=== PATIENT | female | born 1970 | race Caucasian/White ===

== ENCOUNTER 2018-09-01 21:43 | Emergency (ER) | payer OTHER, SELFPAY ==
[2018-09-01 21:44] VITALS: BP 125/80; PULSE 122; RESP 22; TEMP 38.3; O2SAT 96; BMI 31.4
[2018-09-01 21:54] VITALS: BP 123/80; PULSE 117; RESP 16; TEMP 37.5; O2SAT 94
--- NOTE | 2018-09-01 22:17 | ED.DCSUM_ITS ---
- ER Visit Summary Date of Service: 09/01/18 Chief Complaint: Fever History of Present Illness: The patient is a 48 F past Britney history of anxiety, kidney stones and hypothyroidism. Patient states since Wednesday evening started having intermittent fever, chills and sweats. Said tonight her fever was high as 103.4 and decided come in to be evaluated. She denies any significant cough or shortness of breath. No chest pain. No abdominal pain. She denies any nausea, vomiting or diarrhea. No dysuria. No back pain. No rashes. No one else at home has been ill. Physical Examination: Well-appearing middle-age female. Vital signs stable she is febrile at 101. H EENT exam unremarkable. Moist weeks membranes. Posterior pharynx without erythema or exudate. TMs normal. Neck nontender. No lymphadenopathy. No meningismus. Lungs clear to auscultation bilaterally. Heart tachycardic rate about 120 no murmur. Chest wall nontender. Abdomen soft and nontender normal bowel sounds no peritoneal signs. Patient moving all 4 extremities. They are neurovascularly intact. Calves are nontender. Skin there is no rashes. Back is nontender. Neurologically she is awake and alert with no focal motor deficits. Acting normally. Test Results: Chest x-ray 2 views AP and lateral shows no acute abnormality. Normal cardiac silhouette. CBC shows a normal white count of 9. Hemoglobin of 12. No bands. Electrolytes unremarkable. Normal creatinine and gap. Blood cultures x2 have been sent. Urinalysis is unremarkable with no nitrates and no bacteria. There are 5-10 white cells. I did send a culture. But at this time with no urinary symptoms I will hold off on any antibiotic treatment until the culture returns. Emergency Department Course and Treatment: Patient treated with p.o. Tylenol. She had Motrin about 2 hours prior to arrival. 1 L normal saline. Repeat exam at 2313 patient looks and feels better. Her current oral temperature is 98.3 after Tylenol. States she does feel better. Treatment Plan: Fluids and rest. Alternate Tylenol and Motrin for fever. Follow-up with your doctor if not improving or return if worse. Disposition: Discharge Impression: Acute fever of uncertain etiology This note was generated with [employer] dictation software. It may contain incorrect words, spelling, and punctuation that were not noted in review of the chart prior to signing ED Disposition - Plan for ED Patient: Disposition: Home or Assisted Living Instructions: ED Fever Unconf Cause Referrals: Town Doctor,Out of [Primary Care Provider] - 3-5 Days if not improving Additional Instructions: Plenty of fluids and rest. Alternate Tylenol and Motrin for fever. Follow-up with your doctor if not improving or return to the ER if you are feeling worse.
[2018-09-01] MEDS: 0.9% Normal Saline 1,000 ML 1000 ML IV (22:29)
[2018-09-01 22:30] VITALS: BP 108/71; PULSE 105; RESP 20; TEMP 37.6; O2SAT 94
[2018-09-01 22:46] LABS: Bacteria 0 SEEN /hpf (None Seen); Mucous, Urine 0 SEEN /hpf (<or=2+)
[2018-09-01] MEDS: Acetaminophen 500 MG Tablet 1000 MG PO (22:48)
[2018-09-01 22:49] VITALS: BP 127/78; PULSE 94; RESP 18; TEMP 37.6; O2SAT 95
--- NOTE | 2018-09-01 22:54 | RAD_ITS ---
HISTORY: fever EXAM: XR Chest 2 Views COMPARISON: None FINDINGS: LINES/DEVICES: None. LUNGS: Radiographically clear. No consolidation, edema or effusion. No pneumothorax. MEDIASTINUM AND CARDIOVASCULAR STRUCTURES: Cardiac silhouette not enlarged. Central airways and mediastinal contour are unremarkable. BONES AND SOFT TISSUES: No acute findings. Prominent S-shaped scoliosis partially visible. RAD/Chest PA and Lateral IMPRESSION: No radiographic evidence of acute cardiopulmonary disease. at 0023 Reported and signed by: Ian Baugh MD Electronically Signed: Ian Baugh, at 0:22 EDT Tel , Service support ,
[2018-09-01 23:06] LABS: Absolute Lymphocyte Count 1.49 X10^3/ul (0.83-4.51); Absolute Neutrophil Count 6.8 X10^3/uL (2.0-7.7); Basophil# 0.03 X10^3/uL; Basophil% 0.3 % (0-1); Eosinophil# 0.04 X10^3/uL; Eosinophils% 0.4 % (0-5); Hematocrit 39.2 % (37-47); Hemoglobin 12.9 g/dl (12.0-15.0); Lymphocyte # 1.49 X10^3/ul (4.0); Mean Corp Hgb Conc 32.9 g/gl (32-36); Mean Corpuscular Hgb 29.9 pg (27.0-32.0); Mean Corpuscular Volume 90.7 fL (81-99); Mean Platelet Vol. 9.4 fl (6.2-12.0); Monocyte# 1.59 X10^3/uL; Neutrophil # 6.76 X10^3/uL (2.7-7.7); Neutrophil % 68.2 % (47-70); Platelet Count 186 K/mm3 (150-450); RBC Distribution Width CV 14.4 % (11.6-14.6); RBC Distribution Width SD 47.2 fl (35.1-43.9); Red Blood Count 4.32 M/mm3 (4.2-5.4); White Blood Count 9.9 K/mm3 (4.4-11.0)
[2018-09-01 23:09] LABS: Differential Indicated SCAN CRITERIA MET; POSITIVE COUNT NO; POSITIVE DIFFERENTIAL YES; POSITIVE MORPHOLOGY YES
--- NOTE | 2018-09-01 23:10 | ED.DEP ---
ED Disposition - Plan for ED Patient: Disposition: Home or Assisted Living Instructions: ED Fever Unconf Cause Referrals: Town Doctor,Out of [Primary Care Provider] - 3-5 Days if not improving Additional Instructions: Plenty of fluids and rest. Alternate Tylenol and Motrin for fever. Follow-up with your doctor if not improving or return to the ER if you are feeling worse.
[2018-09-01 23:12] LABS: Anion Gap 7 (5-15); BUN 11 mg/dL (7-18); BUN/Creat Ratio 15.5 RATIO (10-20); Calcium,Total 8.5 mg/dL (8.5-10.1); Chloride 105 mmol/L (98-107); Creatinine, Serum 0.71 mg/dL (0.55-1.02); EST Glomerular Filtration Rate 94 mL/min (>60); Est Glom Filt Rate - Afr Amer 114 mL/min (>60); Estimated Creatinine Clearance 92.69 ml/min; Glucose 112 mg/dL (74-106); Potassium 3.7 mmol/L (3.5-5.1); Sodium Level 138 mmol/L (136-145)
[2018-09-01 23:23] VITALS: BP 116/69; PULSE 92; PULSE 93; RESP 18; TEMP 37.3; O2SAT 95
[2018-09-01 23:25] LABS: Color, Urine Straw (Yellow); Glucose, Dipstick Normal (Normal); Ketone-Dipstick Negative (Negative); Leukocyte Esterase-Dipstick 500 /ul (Negative); Nitrite-Dipstick Negative (Negative); Occult Blood-Urine 150 /ul (Negative); Protein-Dipstick Negative (Negative); Specific Gravity, Urine 1.005 (1.002-1.030); Urine Bilirubin Dipstick Negative (Negative); Urine Clarity Clear (Clear); Urine Urobilinogen Normal (Normal)
[2018-09-01 23:28] LABS: Lactic Acid 0.6 mmol/L (0.4-2.0)
[2018-09-01 23:31] LABS: Differential Comment SCANNED
[2018-09-01 23:54] LABS: Squamous Epithelial Cells - UA 0-5 SEEN /hpf (5-10)
[2018-09-01 23:55] LABS: Red Blood Cells-Urine 0-5 SEEN /hpf (0-5); White Blood Cells 5-10 SEEN /hpf (0-5)
[2018-09-02 00:08] VITALS: BP 110/71; PULSE 96; RESP 18; TEMP 36.8; O2SAT 95
--- NOTE | 2018-09-02 00:12 | ED.DEP ---
ED Disposition - Plan for ED Patient: Disposition: Home or Assisted Living Instructions: ED Fever Unconf Cause Referrals: Town Doctor,Out of [Primary Care Provider] - 3-5 Days if not improving Additional Instructions: Plenty of fluids and rest. Alternate Tylenol and Motrin for fever. Follow-up with your doctor if not improving or return to the ER if you are feeling worse. We set both blood cultures and urine cultures tonight looking for bacterial infections they should both return in the next 48 hours if there is any signs of infection we will follow-up with you.
== END 2018-09-02 00:16 | disposition home or self-care (01) ==
PROVIDERS: Emergency Provider Emergency Medicine
DX: R50.9 Fever, unspecified (principal); E03.9 Hypothyroidism, unspecified; F41.9 Anxiety disorder, unspecified; Z87.442 Personal history of urinary calculi; Z79.899 Other long term (current) drug therapy
CPT/HCPCS: 71046; 80048; 81001; 83605; 85025; 87040; 87077; 87086; 87088; 87186; 96360; 99284; J7030

== ENCOUNTER 2022-02-13 11:31 | Inpatient (IN) | payer BC, SELFPAY ==
[2022-02-13] VITALS (16 sets, daily range): BP systolic 108–134; BP diastolic 57–90; PULSE 95–149; RESP 16–20; TEMP 36.6–39.4; O2SAT 96–100; BMI 30.4; BMI 30.2
--- NOTE | 2022-02-13 12:07 | CT_ITS ---
STUDY: CT ABDOMEN AND PELVIS WITH CONTRAST REASON FOR EXAM: Female, 51 years old. Left flank pain. Currently being treated for kidney infection. ? Renal abscess RADIATION DOSAGE (If Supplied By Facility): CTDIvol = ( 17.77 ) mGy, DLP = ( 1831.23 ) mGycm TECHNIQUE: Transaxial images were obtained from the dome of the diaphragm to the symphysis pubis without oral contrast. IV 100mL Isovue-300 was administered. Sagittal and coronal images were reconstructed. Individualized dose optimization techniques were used for this CT. COMPARISON: Comparison is made with prior study dated 07/04/2016. FINDINGS: Stable mild increased markings at the left lung base suggestive of but atelectasis superimposed on scarring. The visualized portions of the heart are within normal limits. Normal liver. Normal gallbladder and extrahepatic biliary system. Normal spleen. Normal pancreas. Normal bilateral adrenal glands. There is evidence of dense calcifications of the renal papilla bilaterally suggestive of nephrocalcinosis. There is a 1.5 cm x 1.2 cm area of decreased attenuation in the posterior aspect of the left kidney abutting the cortical surface along its lower pole. A similar appearing heterogeneous hypodensities seen along the posterior medial aspect of the midportion of the left kidney. This may represent areas of pyelonephritis. No mary jane abscess is seen. There is evidence of a moderate-sized right hydronephrosis. No calculus is seen. Normal visualized stomach. Normal small intestine. There are scattered colonic diverticula consistent with diverticulosis. The appendix is visualized and appears normal. Normal abdominal aorta. Normal inferior vena cava. Normal retroperitoneum. Normal urinary bladder. Enlarged heterogeneous uterus suggestive of a fibroid uterus. Normal abdominal wall. Grade 1 anterolisthesis of L5 on S1 due to spondylolysis. Disc space narrowing and subchondral sclerosis at the L5-S1 level. Levoscoliosis. CT/Abdomen/Pelvis W IV Cont ONLY IMPRESSION: Dense bilateral nephrocalcinosis with 2 areas of decreased attenuation in the left kidney as described suggestive of possible pyelonephritis and lobar nephronia. Mildly dilated right renal pelvis and calyceal system. Electronically Signed: Kenny Chen MD at 14:01 EDT ,
--- NOTE | 2022-02-13 12:16 | EDS_ITS ---
HPI History of Present Illness Chief Complaint: Flank Pain Informant: patient and spouse/S.O. Narrative Narrative: 51-year-old female presenting to the emergency room with a chief complaint of kidney infection. Patient states she began to have fever and chills on Wednesday. She notes associated dysuria and urinary frequency. Yesterday she went to urgent care was given a prescription for Bactrim. She notes nausea and difficulty drinking and eating. She notes worsening pain in the left flank. She states she took some Motrin prior to arrival and is feeling less febrile and less painful. [facility] Medical History Depression with anxiety Hypothyroidism Home Medications alprazolam 0.5 mg tablet 0.5 mg PO DAILY PRN Insomnia 03/15/16 [History Last Taken 03/15/16] sertraline 25 mg tablet (Zoloft) 12.5 mg PO DAILY 09/01/18 [History Last Taken 02/12/22] thyroid (pork) 30 mg tablet ([place] Thyroid) 30 mg PO DAILY 09/01/18 [History Last Taken 02/13/22] melatonin 1.5 mg tablet 2 mg PO QHS 02/13/22 [History Last Taken 02/12/22] Allergy/AdvReac Type Severity Reaction Status Date / Time cephalexin AdvReac Other Verified 02/13/22 11:33 ciprofloxacin [From Cipro] AdvReac Nausea Verified 02/13/22 11:32 Social History Smoking Status: Never smoker substance use type: does not use ROS ROS ED Constitutional Constitutional ED: Reports chills, fever(s) and sweats; Denies weight loss Eyes Eyes: Denies change in vision or diplopia ENT ENT ED: Denies ear pain, rhinorrhea or sore throat Cardiovascular Cardiovascular: Denies chest pain, orthopnea, palpitations or racing heartbeat Respiratory/Chest Respiratory/Chest: Denies cough, dyspnea or orthopnea Gastrointestinal Gastrointestinal: Reports nausea; Denies abdominal pain, diarrhea or vomiting Genitourinary Genitourinary ED: Reports dysuria and urinary frequency; Denies hematuria Musculoskeletal Musculoskeletal: Reports back pain; Denies arthralgias or myalgias Integumentary Denies abscess or rash Neurologic Neurologic: Denies headache(s) or weakness Psychiatric Psychiatric: Denies anxiety, depression, suicidal ideation or suicidal thoughts Endocrine Endocrinology: Denies polydipsia, polyphagia or polyuria Allergic/Immunologic Allergic/Immunologic ED: Denies mouth swelling, tongue swelling or urticaria EXAM Physical Exam Const Vital Signs: 02/13/22 11:33 02/13/22 11:35 02/13/22 12:35 Temperature 99.1 F 99.1 F 99.1 F Temperature Source Oral Oral Oral Pulse Rate 126 H 126 H 126 H Respiratory Rate 18 18 18 Blood Pressure 126/90 H 126/90 H 126/90 H Blood Pressure Mean 102 102 102 Pulse Ox 97 97 97 Oxygen Delivery Method Room Air Room Air Room Air 02/13/22 13:00 02/13/22 14:07 02/13/22 14:09 Temperature 99.1 F 98.2 F Temperature Source Oral Oral Pulse Rate 122 H 98 100 Respiratory Rate 18 18 18 Blood Pressure 128/88 H 108/57 L Blood Pressure Mean 101 74 Pulse Ox 97 Oxygen Delivery Method Room Air Room Air Room Air Positive well nourished and well developed General Appearance ED: well developed HEENT Reports normocephalic, head/scalp atraumatic and moist mucous membranes Eyes PERRL and EOMs intact bilaterally Neck no lymphadenopathy, supple and no JVD Resp normal respiratory effort and clear to auscultation bilaterally Cardio regular rate, regular rhythm and no murmurs Rate: tachycardic GI normal to inspection, nondistended, normoactive bowel sounds and non-tender Palpation: soft Back/Spine normal ROM General Back: CVA tenderness left Extremity normal to inspection General Extremety ED: Negative for edema General Extremity: Negative for edema Neuro oriented x3 and CN's II-XII intact bilaterally Sensorium / Orientation: alert Motor Exam: strength 5/5 throughout Psych mental status grossly normal Mood & Affect: Negative for depressed or tearful Skin no rashes or lesions noted and no wounds Skin Narrative: Patient is diaphoretic Sepsis Attestation Possible Source of Sepsis: Genitourinary MDM MDM MDM Narrative Medical decision making narrative: White count returns at 16.4. Hemoglobin 11.7. Creatinine slightly elevated off baseline at 1.11. Lactic acid is normal at 1.5. There is some elevation of the patient's transaminases. Troponin is negative. Urinalysis shows 25-50 red cells 25-50 white cells and 1+ bacteria. With 5 days of fever and continued left flank pain and a history of ureterolithiasis a CT of the abdomen pelvis was obtained to rule out infected kidney stone and renal abscess. Patient received IV fluids morphine Toradol Zofran and Zosyn after blood and urine cultures were obtained. Lab Data Attestation: I reviewed the patient's lab results. Labs: Laboratory Results - last 24 hr 02/13/22 02/13/22 02/13/22 12:05 12:20 12:20 WBC 16.4 H RBC 3.77 L Hgb 11.7 L Hct 34.8 L MCV 92.3 MCH 31.0 MCHC 33.6 RDW Std Deviation 50.4 H RDW Coeff of [place] 14.8 H Plt Count 177 MPV 9.9 Immature Gran % (Auto) 0.700 Neut % (Auto) 85.4 H Lymph % (Auto) 3.4 L [place] % (Auto) 10.1 H Eos % (Auto) 0.1 Baso % (Auto) 0.3 Absolute Neuts (auto) 14.0 H Absolute Lymphs (auto) 0.56 L Nucleated RBC % 0 Platelet Estimate ADEQUATE RBC Morphology NORM C+C PT INR APTT Sodium 136 Potassium 3.7 Chloride 106 Carbon Dioxide 21.0 Anion Gap 9 BUN 11 Creatinine 1.11 H Estim Creat Clear Calc 59.62 Est GFR (MDRD) Af Amer 67 Est GFR (MDRD) Non-Af 55 L BUN/Creatinine Ratio 9.9 L Glucose 168 H Lactic Acid Calcium 8.8 Total Bilirubin 0.70 AST 57 H ALT 160 H Alkaline Phosphatase 243 H Troponin I High Sens < 3 L Total Protein 7.1 Albumin 2.4 L Globulin 4.7 H Albumin/Globulin Ratio 0.5 L Lipase 40 L Urine Color Yellow Urine Clarity Sl. Cloudy Urine pH 6.5 Ur Specific [place] 1.005 Urine Protein 30 H Urine Glucose (UA) Normal Urine Ketones 15 H Urine Occult Blood 250 H Urine Nitrite Negative Urine Bilirubin Negative Urine Urobilinogen Normal Ur Leukocyte Esterase 500 H Urine RBC 25-50 SEEN Urine WBC 25-50 SEEN Ur Squamous Epith Cells 0-5 SEEN Urine Bacteria 1+ Urine Mucus 0 SEEN 02/13/22 02/13/22 12:20 12:56 WBC RBC Hgb Hct MCV MCH MCHC RDW Std Deviation RDW Coeff of [place] Plt Count MPV Immature Gran % (Auto) Neut % (Auto) Lymph % (Auto) [place] % (Auto) Eos % (Auto) Baso % (Auto) Absolute Neuts (auto) Absolute Lymphs (auto) Nucleated RBC % Platelet Estimate RBC Morphology PT 15.3 H INR 1.2 APTT 35.3 Sodium Potassium Chloride Carbon Dioxide Anion Gap BUN Creatinine Estim Creat Clear Calc Est GFR (MDRD) Af Amer Est GFR (MDRD) Non-Af BUN/Creatinine Ratio Glucose Lactic Acid 1.5 Calcium Total Bilirubin AST ALT Alkaline Phosphatase Troponin I High Sens Total Protein Albumin Globulin Albumin/Globulin Ratio Lipase Urine Color Urine Clarity Urine pH Ur Specific [place] Urine Protein Urine Glucose (UA) Urine Ketones Urine Occult Blood Urine Nitrite Urine Bilirubin Urine Urobilinogen Ur Leukocyte Esterase Urine RBC Urine WBC Ur Squamous Epith Cells Urine Bacteria Urine Mucus Radiography Diagnostic Testing: Clinical Impression(s) from Imaging Studies Abdomen/Pelvis CT 02/13/22 12:07 IMPRESSION: Dense bilateral nephrocalcinosis with 2 areas of decreased attenuation in the left kidney as described suggestive of possible pyelonephritis and lobar nephronia. Mildly dilated right renal pelvis and calyceal system. Electronically Signed: Kenny Chen MD at 14:01 EDT , Discharge Plan Dx/Rx/DC Orders Clinical Impression: Acute pyelonephritis, Left flank pain, Hypothyroidism, Depression with anxiety Disposition Disposition: Acute Care Hospital [facility]
[2022-02-13 12:32] LABS: Mucous, Urine 0 SEEN /hpf (<or=2+)
[2022-02-13 12:35] LABS: Absolute Lymphocyte Count 0.56 X10^3/uL (0.83-4.51); Basophil# 0.05 X10^3/uL; Basophil% 0.3 % (0-1); Eosinophil# 0.02 X10^3/uL; Eosinophils% 0.1 % (0-5); Hematocrit 34.8 % (37-47); Hemoglobin 11.7 g/dL (12.0-15.0); Lymphocyte # 0.56 X10^3/ul (0.83-4.51); Lymphocyte % 3.4 % (19-41); Mean Corp Hgb Conc 33.6 g/dL (32-36); Mean Corpuscular Volume 92.3 fL (81-99); Mean Platelet Vol. 9.9 fl (6.2-12.0); Monocyte# 1.65 X10^3/uL; Monocyte% 10.1 % (0-10); NRBC Flagged by Analyzer 0 % (0-5); Neutrophil # 13.96 X10^3/uL (2.7-7.7); Neutrophil % 85.4 % (47-70); POSITIVE DIFFERENTIAL YES; POSITIVE MORPHOLOGY YES; Platelet Count 177 K/mm3 (150-450); RBC Distribution Width CV 14.8 % (11.6-14.6); RBC Distribution Width SD 50.4 fl (35.1-43.9); Red Blood Count 3.77 M/mm3 (4.2-5.4); White Blood Count 16.4 K/mm3 (4.4-11.0)
[2022-02-13 12:36] LABS: Color, Urine Yellow (Yellow); Glucose, Dipstick Normal (Normal); Ketone-Dipstick 15 mg/dl (Negative); Leukocyte Esterase-Dipstick 500 /ul (Negative); Nitrite-Dipstick Negative (Negative); Occult Blood-Urine 250 /ul (Negative); Protein-Dipstick 30 mg/dl (Negative); Specific Gravity, Urine 1.005 (1.002-1.030); Urine Bilirubin Dipstick Negative (Negative); Urine Clarity Sl. Cloudy (Clear); Urine Urobilinogen Normal (Normal); Urine pH 6.5 (5.0 - 8.0)
[2022-02-13 12:36] LABS: Differential Indicated SCAN CRITERIA MET
[2022-02-13 12:46] LABS: Bacteria 1+ /hpf (None Seen); Red Blood Cells-Urine 25-50 SEEN /hpf (0-5); Squamous Epithelial Cells - UA 0-5 SEEN /hpf (5-10); White Blood Cells 25-50 SEEN /hpf (0-5)
[2022-02-13] MEDS: Ondansetron 4 MG/2 ML Vial IV (12:50)
[2022-02-13] MEDS: Morphine 4 MG/ML Syringe IV (12:50)
[2022-02-13] MEDS: Ketorolac 30 MG/ML Syringe IV (12:50)
[2022-02-13] MEDS: 0.9% Normal Saline 1,000 ML 1000 ML IV (12:51)
[2022-02-13 13:03] LABS: ALB/GLOB Ratio 0.5 RATIO (0.9-2.4); AST(SGOT) 57 U/L (15-37); Alanine Aminotransfer ALT/SGPT 160 U/L (13-56); Albumin, Serum 2.4 g/dL (3.2-5.0); Alkaline Phosphatase 243 U/L (45-117); Anion Gap 9 (5-15); BUN 11 mg/dL (7-18); BUN/Creat Ratio 9.9 RATIO (10-20); Calcium,Total 8.8 mg/dL (8.5-10.1); Chloride 106 mmol/L (98-107); Creatinine, Serum 1.11 mg/dL (0.55-1.02); EST Glomerular Filtration Rate 55 mL/min (>60); Est Glom Filt Rate - Afr Amer 67 mL/min (>60); Estimated Creatinine Clearance 59.62 ml/min; Globulin 4.7 g/dL (2.2-4.2); Glucose 168 mg/dL (74-106); Lipase 40 U/L (73-393); Potassium 3.7 mmol/L (3.5-5.1); Protein, Total 7.1 g/dL (6.4-8.2); Sodium Level 136 mmol/L (136-145); Troponin-I HS < 3 pg/mL (3.0-54.0)
[2022-02-13 13:08] LABS: Lactic Acid 1.5 mmol/L (0.4-1.9)
[2022-02-13 13:11] LABS: Platelet Estimate ADEQUATE (ADEQ); Red Cell Morphology NORM C+C NORMAL (NORM C&C)
[2022-02-13 13:15] LABS: International Normalized Ratio 1.2; Prothrombin Time (Protime)PT. 15.3 SECONDS (11.7-14.9)
[2022-02-13 13:16] LABS: Partial Thromboplast Time 35.3 Seconds (24.1-36.2)
--- NOTE | 2022-02-13 14:44 | NURSING ---
MED SURG TERSAUD ACUTE PYELONEPHRITIS
--- NOTE | 2022-02-13 16:40 | HP.PCM.HOS_ITS ---
HPI - General General Date of Admission: 02/13/22 Date of Service: 02/13/22 Chief Complaint: Left flank pain, urinary frequency, dysuria HPI Narrative JU PIEDRA, is a 51 F who presents to the emergency room at [facility] with complaints of dysuria, urinary frequency, and left flank pain. Patient states she had fevers and chills beginning last Wednesday, she was seen yesterday at urgent care and given a prescription for Bactrim. Patient states that she has been having some nausea and difficulty drinking fluids and e ating. Labs obtained in the emergency room showed the patient have an elevated white blood cell count at 16.4, hemoglobin was 11.7, patient's chemistry profile revealed a creatinine of 1.11 but was otherwise unremarkable. Patient's AST was elevated at 57, ALT was elevated at 160, and alkaline phosphatase was elevated at 243. Patient's urinalysis showed 25-50 RBCs, 25-50 WBCs, +1 bacteria. Azucena ent was afebrile in the emergency room. CT of the abdomen pelvis showed dense bilateral nephrocalcinosis bilaterally with 2 areas of decreased attenuation in the left kidney and possible pyelonephritis and lobar nephronia. Patient will be admitted for acute pyelonephritis, she states that when she was on Keflex before she felt strange, she has no rash or shortness of breath from Keflex, I have decided to place her on IV Rocephin for pyelonephritis. [facility] Medical History Depression with anxiety Hypothyroidism Home Medications alprazolam 0.5 mg tablet 0.5 mg PO DAILY PRN Insomnia 03/15/16 [History Last Taken 03/15/16] sertraline 25 mg tablet (Zoloft) 12.5 mg PO DAILY 09/01/18 [History Last Taken 02/12/22] thyroid (pork) 30 mg tablet ([place] Thyroid) 30 mg PO DAILY 09/01/18 [History Last Taken 02/13/22] melatonin 1.5 mg tablet 2 mg PO QHS 02/13/22 [History Last Taken 02/12/22] Allergy/AdvReac Type Severity Reaction Status Date / Time cephalexin AdvReac Other Verified 02/13/22 11:33 ciprofloxacin [From Cipro] AdvReac Nausea Verified 02/13/22 11:32 Social History Smoking Status: Never smoker substance use type: does not use ROS Constitutional Constitutional: Reports chills, fatigue and fever(s); Denies anorexia, change in weight, night sweats or weakness Eyes Eyes: Denies blurry vision, change in vision, discharge from eye(s) or eye pain Cardiovascular Cardiovascular: Denies chest pain, claudication, edema or palpitations Respiratory/Chest Respiratory/Chest: Denies cough, hemoptysis, shortness of breath at rest or shortness of breath with exertion Gastrointestinal Gastrointestinal: Denies abdominal pain, constipation, diarrhea, hematemesis, hematochezia, melena, nausea or vomiting Genitourinary Genitourinary: Reports burning urination, dysuria, urinary frequency and urinary urgency; Denies hematuria, urinary hesitancy or urinary incontinence Musculoskeletal Musculoskeletal: Denies back pain, joint pain, joint stiffness, joint swelling, myalgias or neck pain Neurologic Neurologic: Denies abnormal gait, abnormal speech, dizziness, focal weakness, headache(s), loss of vision, numbness, other visual disturbances, paresthesias, syncope or tingling Psychiatric Psychiatric: Denies anxiety, cognitive impairment, depression, irritability, m ood swings or suicidal ideation Endocrine Endocrinology: Denies change in body appearance, cold intolerance, excessive sweating, heat intolerance, polydipsia or polyuria Hematologic/Lymphatic Hematologic/Lymphatic: Denies none, anemia, easy bleeding, easy bruising or lymphadenopathy Allergic/Immunologic Allergic/Immunologic: Denies rhinitis, urticaria, eczemia or asthma Vital Signs Vital Signs Vital Signs: 02/13/22 11:33 02/13/22 11:35 02/13/22 12:35 Temperature 99.1 F 99.1 F 99.1 F Temperature Source Oral Oral Oral Pulse Rate 126 H 126 H 126 H Respiratory Rate 18 18 18 Blood Pressure 126/90 H 126/90 H 126/90 H Blood Pressure Mean 102 102 102 Blood Pressure Source Blood Pressure Position Blood Pressure Location Pulse Ox 97 97 97 Oxygen Delivery Method Room Air Room Air Room Air 02/13/22 13:00 02/13/22 14:07 02/13/22 14:09 Temperature 99.1 F 98.2 F Temperature Source Oral Oral Pulse Rate 122 H 98 100 Respiratory Rate 18 18 18 Blood Pressure 128/88 H 108/57 L Blood Pressure Mean 101 74 Blood Pressure Source Blood Pressure Position Blood Pressure Location Pulse Ox 97 Oxygen Delivery Method Room Air Room Air Room Air 02/13/22 15:11 02/13/22 16:17 02/13/22 16:19 Temperature 97.8 F 98.3 F 98.3 F Temperature Source Oral Oral Oral Pulse Rate 95 101 H 101 H Respiratory Rate 18 20 H 20 H Blood Pressure 116/67 112/61 112/61 Blood Pressure Mean 83 78 78 Blood Pressure Source Monitor Blood Pressure Position Semi-Fowlers Blood Pressure Location Left Arm Pulse Ox 100 100 Oxygen Delivery Method Room Air Room Air Room Air Weight Weight: 87.543 kg Body Mass Index (BMI) 30.2 Physical Exam Const alert, oriented x3, no apparent distress and healthy appearing General Appearance: cooperative, well kempt and well developed Orientation / Consciousness: awake, oriented to person, oriented to place and oriented to time HEENT normocephalic, head/scalp atraumatic, hearing grossly normal bilaterally and moist oral mucous membranes Eyes PERRL, EOMs intact bilaterally and conjunctivae normal Neck supple, no JVD, thyroid normal and no carotid bruits General: trachea midline Resp normal respiratory effort, no retractions, no use of accessory muscles and clear to auscultation bilaterally Auscultation: Negative for rales, rhonchi or wheezes Cardio regular rate, regular rhythm, S1 normal heart sound, S2 normal heart sound, no murmurs, no rub and no gallops GI normal to inspection, nondistended, normoactive bowel sounds, soft to palpation, non-tender and non-distended Extremity no clubbing, cyanosis or edema Skin no rashes or lesions noted General Skin Exam: no breakdown Neuro oriented x3, CN's II-XII intact bilaterally, moves all extremities, no focal motor deficits and no sensory deficits noted Sensorium / Orientation: awake and alert Speech: speech normal Psych affect normal Results Lab / Micro Data Result Diagrams: 02/13/22 12:20 02/13/22 12:20 Labs: Laboratory Results - last 24 hr 02/13/22 12:05: Urine Color Yellow, Urine Clarity Sl. Cloudy, Urine pH 6.5, Ur Specific [place] 1.005, Urine Protein 30 H, Urine Glucose (UA) Normal, Urine Ketones 15 H, Urine Occult Blood 250 H, Urine Nitrite Negative, Urine Bilirubin Negative, Urine Urobilinogen Normal, Ur Leukocyte Esterase 500 H, Urine RBC 25- 50 SEEN, Urine WBC 25-50 SEEN, Ur Squamous Epith Cells 0-5 SEEN, Urine Bacteria 1+, Urine Mucus 0 SEEN 02/13/22 12:20: WBC 16.4 H, RBC 3.77 L, Hgb 11.7 L, Hct 34.8 L, MCV 92.3, MCH 31.0, MCHC 33.6, RDW Std Deviation 50.4 H, RDW Coeff of [place] 14.8 H, Plt Count 177, MPV 9.9, Immature Gran % (Auto) 0.700, Neut % (Auto) 85.4 H, Lymph % (Auto) 3.4 L, [place] % (Auto) 10.1 H, Eos % (Auto) 0.1, Baso % (Auto) 0.3, Absolute Neuts (auto) 14.0 H, Absolute Lymphs (auto) 0.56 L, Nucleated RBC % 0, Platelet Estimate ADEQUATE, RBC Morphology NORM C+C 02/13/22 12:20: Sodium 136, Potassium 3.7, Chloride 106, Carbon Dioxide 21.0, Anion Gap 9, BUN 11, Creatinine 1.11 H, Estim Creat Clear Calc 59.62, Est GFR (MDRD) Af Amer 67, Est GFR (MDRD) Non-Af 55 L, BUN/Creatinine Ratio 9.9 L, Glucose 168 H, Calcium 8.8, Total Bilirubin 0.70, AST 57 H, ALT 160 H, Alkaline Phosphatase 243 H, Troponin I High Sens < 3 L, Total Protein 7.1, Albumin 2.4 L, Globulin 4.7 H, Albumin/Globulin Ratio 0.5 L, Lipase 40 L 02/13/22 12:20: Lactic Acid 1.5 02/13/22 12:56: PT 15.3 H, INR 1.2, APTT 35.3 Radiology Impression Abdomen/Pelvis CT 02/13/22 12:07 IMPRESSION: Dense bilateral nephrocalcinosis with 2 areas of decreased attenuation in the left kidney as described suggestive of possible pyelonephritis and lobar nephronia. Mildly dilated right renal pelvis and calyceal system. Electronically Signed: Kenny Chen MD at 14:01 EDT , Assessment & Plan Assessment/Plan (1) Acute pyelonephritis: PLAN: Plan 1. Acute pyelonephritis-patient will be admitted to [facility] 3, she will be placed on IV Rocephin, IV fluids will be administered, IV pain meds will be given as needed #2 dehydration-patient will be given IV fluids, labs will be monitored #3 elevated liver enzymes-etiology unclear at this point, liver profile will be reordered tomorrow morning #4 hypothyroidism-patient will remain on her current medications #5 chronic depression-patient is on Zoloft, she will remain on this #6 chronic kidney stones-complicates care, management, recovery, and prognosis Charges/Coding Visit Charges Inpatient E&M: 74016 Init Hosp L3
[2022-02-13] MEDS: Acetaminophen 325 MG Tablet 650 MG PO ×2 (17:05→23:46)
[2022-02-13] MEDS: 0.9% Normal Saline 1,000 ML 150 ML IV (18:30)
[2022-02-13] MEDS: Phenazopyridine 95 MG Tablet PO (18:30)
[2022-02-13] MEDS: MELATONIN 3 MG TABLET PO (20:59)
[2022-02-13] MEDS: oxyCODONE 5 MG Tablet 10 MG PO (21:37)
[2022-02-14] VITALS (13 sets, daily range): BP systolic 109–140; BP diastolic 51–80; PULSE 97–126; RESP 16–18; TEMP 36.8–39.5; O2SAT 92–94
[2022-02-14] MEDS: 0.9% Normal Saline 1,000 ML 150 ML IV ×4 (00:59→21:21)
[2022-02-14] MEDS: ALPRAZolam 0.5 MG Tablet PO (03:54)
[2022-02-14] MEDS: Thyroid 15 MG Tablet 30 MG PO (05:43)
[2022-02-14] MEDS: Acetaminophen 325 MG Tablet 650 MG PO ×3 (05:44→18:56)
[2022-02-14 06:14] LABS: Absolute Lymphocyte Count 0.81 X10^3/uL (0.83-4.51); Absolute Neutrophil Count 10.1 X10^3/uL (2.0-7.7); Basophil# 0.03 X10^3/uL; Basophil% 0.2 % (0-1); Eosinophil# 0.01 X10^3/uL; Eosinophils% 0.1 % (0-5); Hematocrit 31.2 % (37-47); Hemoglobin 10.3 g/dL (12.0-15.0); Lymphocyte # 0.81 X10^3/ul (0.83-4.51); Lymphocyte % 6.2 % (19-41); Mean Corpuscular Hgb 31.7 pg (27.0-32.0); Mean Platelet Vol. 9.9 fl (6.2-12.0); Monocyte# 2.05 X10^3/uL; Monocyte% 15.6 % (0-10); NRBC Flagged by Analyzer 0 % (0-5); Neutrophil # 10.13 X10^3/uL (2.7-7.7); POSITIVE DIFFERENTIAL YES; Platelet Count 159 K/mm3 (150-450); RBC Distribution Width CV 15.5 % (11.6-14.6); RBC Distribution Width SD 55.1 fl (35.1-43.9); Red Blood Count 3.25 M/mm3 (4.2-5.4); White Blood Count 13.2 K/mm3 (4.4-11.0)
[2022-02-14 06:31] LABS: Differential Indicated SCAN CRITERIA MET
[2022-02-14 06:48] LABS: Differential Comment SCANNED
[2022-02-14 06:55] LABS: AST(SGOT) 16 U/L (15-37); Alanine Aminotransfer ALT/SGPT 87 U/L (13-56); Albumin, Serum 1.9 g/dL (3.2-5.0); Alkaline Phosphatase 183 U/L (45-117); Anion Gap 8 (5-15); BUN 11 mg/dL (7-18); BUN/Creat Ratio 12.6 RATIO (10-20); Bilirubin, Direct 0.15 mg/dL (0.00-0.30); Calcium,Total 7.9 mg/dL (8.5-10.1); Chloride 109 mmol/L (98-107); Creatinine, Serum 0.88 mg/dL (0.55-1.02); EST Glomerular Filtration Rate 73 mL/min (>60); Est Glom Filt Rate - Afr Amer 88 mL/min (>60); Globulin 3.8 g/dL (2.2-4.2); Glucose 113 mg/dL (74-106); Potassium 3.5 mmol/L (3.5-5.1); Protein, Total 5.7 g/dL (6.4-8.2); Sodium Level 139 mmol/L (136-145)
[2022-02-14] MEDS: Sertraline 50 MG Tablet 12.5 MG PO (07:50)
[2022-02-14] MEDS: Phenazopyridine 95 MG Tablet PO ×3 (07:51→17:02)
--- NOTE | 2022-02-14 08:27 | CASEMGMT ---
LORETO MUNOZ Assessment: Face to Face with pt for initial transition planning/care coordination assessment. RN ALEXANDER introduced self and role at [facility], pt voices understanding and consents to assessment. Pt is A/O x4 and answers all questions appropriately at this time. Pt sitting up in bed with at bedside. Care providers, pharmacy, and demographics verified/updated. Admitting Dx: acute pyelonephritis PCP:Funmilayo Mckenna CELL PHONE REPAIR TECHNICIAN Specialists:Pt denies. Preferred Pharmacy: [facility] Retail Insurance: Anna Prescription Benefit: yes LW/HPOA: Pt denies having a LW/DPOA and denies need for info regarding AD. LNOK: Crispin Starkey, Living Arrangements: Pt lives with and 10 children in a two story house with 3 steps to enter. Pt reports being I in ADL's and denies concerns at home. Transportation: Pt drives self and denies concerns with transportation. DME/HHC/SNF: Pt denies having any DME, previous HHC or SNF stays. Pt states no concerns with going home at time of dc. Pt states no further concerns/needs. CM to follow. Advised pt to ask CM if any further question/concerns/needs arise, voices understanding. Pt Goal: Home Plan: Home
--- NOTE | 2022-02-14 08:58 | PCM.PN.HOSP ---
Subjective Subjective Doing well, no issues overnight. Pain is improving. Objective Data Objective Data Vital Signs: Vital Signs Temp Pulse Resp BP Pulse Ox O2 Del Method 98.4 F 97 18 111/66 94 Room Air 02/14/22 07:53 02/14/22 07:53 02/14/22 07:53 02/14/22 07:53 02/14/22 07:57 02/14/22 07:57 Oxygen Delivery Method Room Air Weight: 193 lb Body Mass Index (BMI) 30.2 Intake & Output: Intake and Output for Last 24 Hours 02/13/22 02/14/22 02/15/22 03:59 03:59 03:59 Intake Total 2472.5 / 2472.5 1000 / 1000 Balance 2472.5 / 2472.5 1000 / 1000 Lab / Micro Data Result Diagrams: 02/14/22 05:40 02/14/22 05:40 Labs: Laboratory Results - last 24 hr 02/13/22 12:05: Urine Color Yellow, Urine Clarity Sl. Cloudy, Urine pH 6.5, Ur Specific [place] 1.005, Urine Protein 30 H, Urine Glucose (UA) Normal, Urine Ketones 15 H, Urine Occult Blood 250 H, Urine Nitrite Negative, Urine Bilirubin Negative, Urine Urobilinogen Normal, Ur Leukocyte Esterase 500 H, Urine RBC 25-50 SEEN, Urine WBC 25-50 SEEN, Ur Squamous Epith Cells 0-5 SEEN, Urine Bacteria 1+, Urine Mucus 0 SEEN 02/13/22 12:20: WBC 16.4 H, RBC 3.77 L, Hgb 11.7 L, Hct 34.8 L, MCV 92.3, MCH 31.0, MCHC 33.6, RDW Std Deviation 50.4 H, RDW Coeff of Rowena 14.8 H, Plt Count 177, MPV 9.9, Immature Gran % (Auto) 0.700, Neut % (Auto) 85.4 H, Lymph % (Auto) 3.4 L, [place] % (Auto) 10.1 H, Eos % (Auto) 0.1, Baso % (Auto) 0.3, Absolute Neuts (auto) 14.0 H, Absolute Lymphs (auto) 0.56 L, Nucleated RBC % 0, Diff Path Review May foll, Platelet Estimate ADEQUATE, RBC Morphology NORM C+C 02/13/22 12:20: Sodium 136, Potassium 3.7, Chloride 106, Carbon Dioxide 21.0, Anion Gap 9, BUN 11, Creatinine 1.11 H, Estim Creat Clear Calc 59.62, Est GFR (MDRD) Af Amer 67, Est GFR (MDRD) Non-Af 55 L, BUN/Creatinine Ratio 9.9 L, Glucose 168 H, Calcium 8.8, Total Bilirubin 0.70, AST 57 H, ALT 160 H, Alkaline Phosphatase 243 H, Troponin I High Sens < 3 L, Total Protein 7.1, Albumin 2.4 L, Globulin 4.7 H, Albumin/Globulin Ratio 0.5 L, Lipase 40 L 02/13/22 12:20: Lactic Acid 1.5 02/13/22 12:56: PT 15.3 H, INR 1.2, APTT 35.3 02/14/22 05:40: WBC 13.2 H, RBC 3.25 L, Hgb 10.3 L, Hct 31.2 L, MCV 96.0, MCH 31.7, MCHC 33.0, RDW Std Deviation 55.1 H, RDW Coeff of Row[place] 15.5 H, Plt Count 159, MPV 9.9, Immature Gran % (Auto) 0.900, Neut % (Auto) 77.0 H, Lymph % (Auto) 6.2 L, [place] % (Auto) 15.6 H, Eos % (Auto) 0.1, Baso % (Auto) 0.2, Absolute Neuts (auto) 10.1 H, Absolute Lymphs (auto) 0.81 L, Nucleated RBC % 0, Differential Comment SCANNED, Diff Path Review September02/14/22 05:40: Sodium 139, Potassium 3.5, Chloride 109 H, Carbon Dioxide 22.0, Anion Gap 8, BUN 11, Creatinine 0.88, Estim Creat Clear Calc 75.20, Est GFR (MDRD) Af Amer 88, Est GFR (MDRD) Non-Af 73, BUN/Creatinine Ratio 12.6, Glucose 113 H, Calcium 7.9 L, Total Bilirubin 0.50, Direct Bilirubin 0.15, AST 16, ALT 87 H, Alkaline Phosphatase 183 H, Total Protein 5.7 L, Albumin 1.9 L, Globulin 3.8 Micro: Microbiology 02/13/22 12:20 Blood Culture (Wb) - Left Hand Blood Culture - Preliminary Radiography Diagnostic Testing: Radiology Impression Abdomen/Pelvis CT 02/13/22 12:07 IMPRESSION: Dense bilateral nephrocalcinosis with 2 areas of decreased attenuation in the left kidney as described suggestive of possible pyelonephritis and lobar nephronia. Mildly dilated right renal pelvis and calyceal system. Electronically Signed: Kenny Chen MD at 14:01 EDT , Physical Exam Narrative General: Alert, Oriented x3, Cooperative, No apparent distress HEENT: Atraumatic, PERRLA, EOMI, Normocephalic Oral: Moist Mucosa Neck: Supple, No JVD Lungs: Clear to auscultation, Normal air movement, No rhonchi, No wheeze, No rales Cardiovascular: Regular rate, Regular Rhythm, Normal S1, Normal S2, No murmurs Abdomen: Soft, Non Tender, Non-Distended, No Hepato-splenomegaly, mild left CVA tenderness Extremities: No edema, Capillary Refill Less than 3 Seconds Skin: No rashes, No breakdown Musculoskeletal: No Tenderness to Palpation of Joints or Extremities Neurological: Cranial nerves II-XII grossly intact, Motor Exam 5/5 strength throughout, Sensory exam intact to light touch and pain Psych/Mental Status: Normal Affect, Appropriate Assessment & Plan Assessment/Plan (1) Acute pyelonephritis: PLAN: Plan 1. Acute pyelonephritis/dehydration/elevated LFTs/history of chronic kidney stones ? Continue with IV antibiotics ? Continue with IV fluids ? We will start her on Toradol for fever and pain ? Urine cultures are pending ? LFTs are trending downwards, no clear source for it 2. Hypothyroidism ? Continue with Synthroid ? Stable 3. Depression/anxiety ? Stable ? Continue with Zoloft DVT: Ambulation Charges/Coding Visit Charges Inpatient E&M: 13076 Subs Hosp L2
[2022-02-14] MEDS: Ketorolac 15 MG/ML Vial IM ×2 (15:19→21:27)
[2022-02-14] MEDS: MELATONIN 3 MG TABLET PO (20:14)
[2022-02-15] VITALS (8 sets, daily range): BP systolic 111–135; BP diastolic 70–79; PULSE 90–112; RESP 18; TEMP 36.7–36.8; O2SAT 94–99
[2022-02-15] MEDS: Acetaminophen 325 MG Tablet 650 MG PO ×2 (01:01→07:52)
[2022-02-15] MEDS: 0.9% Normal Saline 1,000 ML 150 ML IV (04:02)
[2022-02-15] MEDS: Ketorolac 15 MG/ML Vial IV ×2 (05:30→13:14)
--- NOTE | 2022-02-15 06:27 | NURSING ---
This RN attempted to give thyroid pill two different times this morning. Each time patient didn't want it at this time. This RN will leave med hanging out to be given later this morning.
[2022-02-15 06:42] LABS: Absolute Lymphocyte Count 0.95 X10^3/uL (0.83-4.51); Absolute Neutrophil Count 9.6 X10^3/uL (2.0-7.7); Basophil# 0.02 X10^3/uL; Basophil% 0.2 % (0-1); Eosinophil# 0.09 X10^3/uL; Eosinophils% 0.7 % (0-5); Hematocrit 31.1 % (37-47); Hemoglobin 10.2 g/dL (12.0-15.0); Lymphocyte # 0.95 X10^3/ul (0.83-4.51); Lymphocyte % 7.7 % (19-41); Mean Corp Hgb Conc 32.8 g/dL (32-36); Mean Corpuscular Hgb 30.9 pg (27.0-32.0); Mean Corpuscular Volume 94.2 fL (81-99); Mean Platelet Vol. 9.7 fl (6.2-12.0); Monocyte# 1.45 X10^3/uL; Monocyte% 11.7 % (0-10); NRBC Flagged by Analyzer 0 % (0-5); Neutrophil # 9.64 X10^3/uL (2.7-7.7); Neutrophil % 77.9 % (47-70); Platelet Count 217 K/mm3 (150-450); RBC Distribution Width CV 15.9 % (11.6-14.6); RBC Distribution Width SD 55.2 fl (35.1-43.9); White Blood Count 12.4 K/mm3 (4.4-11.0)
[2022-02-15 07:07] LABS: Anion Gap 8 (5-15); BUN 11 mg/dL (7-18); BUN/Creat Ratio 15.2 RATIO (10-20); Calcium,Total 7.9 mg/dL (8.5-10.1); Chloride 113 mmol/L (98-107); Creatinine, Serum 0.72 mg/dL (0.55-1.02); EST Glomerular Filtration Rate 91 mL/min (>60); Est Glom Filt Rate - Afr Amer 110 mL/min (>60); Estimated Creatinine Clearance 91.91 ml/min; Glucose 96 mg/dL (74-106); Potassium 3.4 mmol/L (3.5-5.1); Sodium Level 142 mmol/L (136-145)
[2022-02-15] MEDS: Thyroid 15 MG Tablet 30 MG PO (07:52)
[2022-02-15] MEDS: Phenazopyridine 95 MG Tablet PO ×2 (07:52→13:14)
[2022-02-15] MEDS: Sertraline 50 MG Tablet 12.5 MG PO (07:52)
--- NOTE | 2022-02-15 10:31 | PCM.DC ---
Discharge Instructions Diet Discharge Diet: No restrictions Activity Discharge Activity: Return to Normal Activity Dressing / Incision Call your doctor if you observe: Fever of 101 or Higher, Shortness of breath, Dizziness, Fainting spells, Swelling in the ankles, Chest pain and Increased palpitations (irregular heartbeat) Follow Up Care Test Results: Test results from this visit will be discussed in further detail at your follow-up appointment, if applicable. Discharge Plan Admission Admit Date/Time: 02/13/22 16:09 Attending Provider: Edgardo Manzanares Primary Care Provider: Funmilayo Mckenna NP Consulting Providers: Rey Cruz Instructions Additional Instructions / Restrictions: Follow up with your PCP next week for outpatient lab work and monitoring for improvement in your pyelonephritis Discharge Orders/Prescriptions Prescriptions: New cephalexin 500 mg capsule 500 mg PO 4X/DAY 10 Days Qty: 40 0RF Continued alprazolam 0.5 MG tablet 0.5 mg PO DAILY PRN (Reason: Insomnia) sertraline [Zoloft] 25 MG tablet 12.5 mg PO DAILY thyroid (pork) [[place] Thyroid] 30 MG tablet 30 mg PO DAILY melatonin 1.5 mg Tablet 2 mg PO QHS Referrals / Follow Up: Divina Barclay MD [Med Staff - Active Staff] - Funmilayo Mckenna NP, ALLERGIST IMMUNOLOGIST-C [Primary Care Provider] - Within 1 Week Disposition Disposition (needs filled in before D/C Order can be placed): Home, Self Care
--- NOTE | 2022-02-15 10:36 | PCM.DC.SUM ---
Providers Date of Admission: 02/13/22 Primary Care Physician: GERMAN CooneyC Reason For Visit: ACUTE PYELONEPHRITIS Diagnosis Discharge Diagnosis (1) Acute pyelonephritis: Status: Acute Code(s): N10 - Acute pyelonephritis Plan 1. Acute pyelonephritis/dehydration/elevated LFTs/history of chronic kidney stones ? Continue with IV antibiotics ? Continue with IV fluids ? We will start her on Toradol for fever and pain ? Urine cultures are pending ? LFTs are trending downwards, no clear source for it 2. Hypothyroidism ? Continue with Synthroid ? Stable 3. Depression/anxiety ? Stable ? Continue with Zoloft DVT: Ambulation Medications at Discharge Home Medications alprazolam 0.5 mg tablet 0.5 mg PO DAILY PRN Insomnia 03/15/16 sertraline 25 mg tablet (Zoloft) 12.5 mg PO DAILY 09/01/18 thyroid (pork) 30 mg tablet ([place] Thyroid) 30 mg PO DAILY 09/01/18 melatonin 1.5 mg tablet 2 mg PO QHS 02/13/22 cephalexin 500 mg capsule 500 mg PO 4X/DAY 10 days #40 caps 02/15/22 Hospital Course Operations None Procedures None Summary of Care Provided Minutes Spent on Discharge: 45 Hospital Course: Per HPI: JU PIEDRA, is a 51 F who presents to the emergency room at [facility] with complaints of dysuria, urinary frequency, and left flank pain.? Patient states she had fevers and chills beginning last Wednesday, she was seen yesterday at urgent care and given a prescription for Bactrim.? Patient states that she has been having some nausea and difficulty drinking fluids and eating. Labs obtained in the emergency room showed the patient have an elevated white blood cell count at 16.4, hemoglobin was 11.7, patient's chemistry profile revealed a creatinine of 1.11 but was otherwise unremarkable.? Patient's AST was elevated at 57, ALT was elevated at 160, and alkaline phosphatase was elevated at 243.? Patient's urinalysis showed 25-50 RBCs, 25-50 WBCs, +1 bacteria.? Patient was afebrile in the emergency room.? CT of the abdomen pelvis showed dense bilateral nephrocalcinosis bilaterally with 2 areas of decreased attenuation in the left kidney and possible pyelonephritis and lobar nephronia. Patient will be admitted for acute pyelonephritis, she states that when she was on Keflex before she felt strange, she has no rash or shortness of breath from Keflex, I have decided to place her on IV Rocephin for pyelonephritis. Hospital Course: 1.? Acute pyelonephritis/dehydration/elevated LFTs/history of chronic kidney stones ? LFTs continue to improve. Urine culture came back positive with pansensitive Klebsiella, she is still having fevers and her white count did improved to 12.4. I discussed with her the possibility of keeping her another day to continue with IV antibiotics versus going home on oral antibiotics. I discussed with her that staying is the safer the 2 options however she feels like she is good enough to go home and would like to go home today. I discussed with her and her the risk and benefits of discharge and expressed understanding. I do recommend that she follow-up with urology as an outpatient I did give her the name of a local urologist, as well as 10 days worth of Keflex secondary to the aerobic bottle on 1 out of 4 cultures to come back positive with a gram-negative nathaniel. Given the Rocephin that she is gone today with the 10 days of oral antibiotic she will complete almost 14 days of antibiotics. I discussed with her to have a low threshold to come back in, she still does spike fevers so if she continues to have issues or worsening pain she should come back to the hospital. CT scan did show nephrocalcinosis but did not demonstrate any nephrolithiasis. She is currently denying any abdominal pain and says that most of her discomfort is with her periodic fevers. 2.? Hypothyroidism ? Continue with Synthroid ? Stable 3.? Depression/anxiety ? Stable ? Continue with Zoloft Physical Exam Narrative General: Alert, Oriented x3, Cooperative, No apparent distress HEENT: Atraumatic, PERRLA, EOMI, Normocephalic Oral: Moist Mucosa Neck: Supple, No JVD Lungs: Clear to auscultation, Normal air movement, No rhonchi, No wheeze, No rales Cardiovascular: Regular rate, Regular Rhythm, Normal S1, Normal S2, No murmurs Abdomen: Soft, Non Tender, Non-Distended, No Hepato-splenomegaly, no CVA tenderness Extremities: No edema, Capillary Refill Less than 3 Seconds Skin: No rashes, No breakdown Musculoskeletal: No Tenderness to Palpation of Joints or Extremities Neurological: Cranial nerves II-XII grossly intact, Motor Exam 5/5 strength throughout, Sensory exam intact to light touch and pain Psych/Mental Status: Normal Affect, Appropriate Weight / BMI Weight Weight: 193 lb Body Mass Index (BMI) 30.2 ABG / Lab / Microbiology Data Result Diagrams: 02/15/22 06:30 02/15/22 06:30 Laboratory: Laboratory Results - last 24 hr 02/15/22 06:30: WBC 12.4 H, RBC 3.30 L, Hgb 10.2 L, Hct 31.1 L, MCV 94.2, MCH 30.9, MCHC 32.8, RDW Std Deviation 55.2 H, RDW Coeff of [place] 15.9 H, Plt Count 217, MPV 9.7, Immature Gran % (Auto) 1.800 H, Neut % (Auto) 77.9 H, Lymph % (Auto) 7.7 L, [place] % (Auto) 11.7 H, Eos % (Auto) 0.7, Baso % (Auto) 0.2, Absolute Neuts (auto) 9.6 H, Absolute Lymphs (auto) 0.95, Nucleated RBC % 0 02/15/22 06:30: Sodium 142, Potassium 3.4 L, Chloride 113 H, Carbon Dioxide 21.0, Anion Gap 8, BUN 11, Creatinine 0.72, Estim Creat Clear Calc 91.91, Est GFR (MDRD) Af Amer 110, Est GFR (MDRD) Non-Af 91, BUN/Creatinine Ratio 15.2, Glucose 96, Calcium 7.9 L Microbiology: Microbiology 02/13/22 12:05 Urine, Clean Catch Urine Culture - Final Klebsiella pneumoniae sp pneum 02/13/22 12:20 Blood Culture (Wb) - Left Hand Blood Culture - Preliminary GNR lactose ornament stitcher 02/13/22 12:56 Blood Culture (Wb) - Right Wrist Blood Culture - Preliminary No growth in 48 hours. D/C Instructions Discharge Diet: No restrictions Call your doctor if you observe: Fever of 101 or Higher, Shortness of breath, Dizziness, Fainting spells, Swelling in the ankles, Chest pain and Increased palpitations (irregular heartbeat) Meaningful Use Info Meaningful Use Diagnoses (Choose all that apply): None applicable Discharge Plan Admission Admit Date/Time: 02/13/22 16:09 Attending Provider: Edgardo Manzanares Primary Care Provider: Funmilayo Mckenna NP Consulting Providers: Rey Cruz Additional Instructions / Restrictions: Follow up with your PCP next week for outpatient lab work and monitoring for improvement in your pyelonephritis Discharge Orders/Prescriptions Prescriptions: New cephalexin 500 mg capsule 500 mg PO 4X/DAY 10 Days Qty: 40 0RF Continued alprazolam 0.5 MG tablet 0.5 mg PO DAILY PRN (Reason: Insomnia) sertraline [Zoloft] 25 MG tablet 12.5 mg PO DAILY thyroid (pork) [[place] Thyroid] 30 MG tablet 30 mg PO DAILY melatonin 1.5 mg Tablet 2 mg PO QHS Referrals / Follow Up: Divina Barclay MD [Med Staff - Active Staff] - Funmilayo Mckenna NP, ATHLETIC AGENT-C [Primary Care Provider] - Within 1 Week Disposition Disposition (needs filled in before D/C Order can be placed): Home, Self Care Charges/Coding Visit Charges Inpatient E&M: 33559 Disch Hosp
[2022-02-16 13:16] LABS: Pathologist Review Reviewed
[2022-02-16 13:18] LABS: Pathologist Review Reviewed
== END 2022-02-15 13:51 | disposition home or self-care (01) | DRG 690 ==
LOC: ED 13:45 → MS3 17:17
PROVIDERS: Admitting Provider Internal Medicine; Emergency Provider Emergency Medicine; PCP Nurse Practitioner Family; Visit Provider Family Medicine
DX: N10 Acute pyelonephritis (principal); E83.59 Other disorders of calcium metabolism; E86.0 Dehydration; F41.9 Anxiety disorder, unspecified; E03.9 Hypothyroidism, unspecified; N29 Other disorders of kidney and ureter in diseases classified elsewhere; R74.8 Abnormal levels of other serum enzymes; B96.1 Klebsiella pneumoniae [K. pneumoniae] as the cause of diseases classified elsewhere; F32.A Depression, unspecified; Z79.899 Other long term (current) drug therapy
CPT/HCPCS: 36415; 74177; 80048; 80053; 80076; 81001; 83605; 83690; 84484; 85025; 85610; 85730; 87040; 87077; 87086; 87088; 87186; 99285; J7030; Q9967; A4216; J0696; J2405

== ENCOUNTER → 2022-04-02 | Outpatient (CLI) | payer BC, SELFPAY ==
--- NOTE | 2022-04-02 15:49 | RAD_ITS ---
STUDY: X-RAY - ABDOMEN/PELVIS REASON FOR EXAM: Female, 51 years old. Renal calculi. TECHNIQUE: Single AP view of the abdomen / pelvis. COMPARISON: CT the abdomen and pelvis, February 13, 2022. FINDINGS: Normal visualized lung bases. There is an unremarkable bowel gas pattern. There is no demonstrated free abdominal air. The visualized liver and spleen are grossly normal in size and morphology. There are multiple calcific densities in the approximate distribution of the bilateral kidneys. This is better seen on the left where it is not partially obscured by overlying bowel gas. Findings correlate with the diffuse calcinosis seen on prior CT. No visualized ureteral calcifications. Stable phleboliths are seen in the pelvis. Levoscoliosis of the lumbar spine. RAD/Abdomen Single View IMPRESSION: Diffuse bilateral nephrocalcinosis. Electronically Signed: Martín Wooten DO at 16:36 EDT ,
== END | disposition home or self-care (01) ==
LOC: MTRAD 15:48
PROVIDERS: PCP Nurse Practitioner Family; Referring Provider Urology; Visit Provider Urology
DX: N20.0 Calculus of kidney (principal)
CPT/HCPCS: 74018

== ENCOUNTER 2022-04-30 12:53 | Day surgery (SDC) | payer BC, SELFPAY ==
[2022-04-30] VITALS (12 sets, daily range): BP systolic 114–144; BP diastolic 68–89; PULSE 69–96; RESP 14–18; TEMP 36.5–37.3; O2SAT 96–100; BMI 30.9
[2022-04-30] MEDS: Lactated Ringers 1,000 ML 15 ML IV ×2 (13:38→16:04)
[2022-04-30] MEDS: Clindamycin 900 MG/50 ML BAG 75 MG IV (13:41)
[2022-04-30 13:55] LABS: Internal QC Validated? YES +Cl - CLEAR BKGD; Pregnancy, Urine Negative Negative
--- NOTE | 2022-04-30 14:44 | DCINST_ITS ---
Discharge Instructions Diet Discharge Diet: No restrictions Activity Discharge Activity: Return to Normal Activity May resume sexual activity in: No Restrictions Dressing / Incision Call your doctor if you observe: Fever of 101 or Higher, Inability to urinate and Inability to have a bowel movement Follow Up Care Please Follow Up With: Divina Barclay MD When: Call the office for instructions to be seen in 2 to 3 weeks with a KUB Test Results: Test results from this visit will be discussed in further detail at your follow- up appointment, if applicable. Discharge Plan Admission Attending Provider: Divina Barclay Primary Care Provider: Funmilayo Mckenna NP Discharge Orders/Prescriptions Prescriptions: New ondansetron HCl [ondansetron HCl] 8 mg tablet 8 mg PO Q8H PRN PRN (Reason: Nausea) 7 Days Qty: 20 0RF phenazopyridine [Pyridium] 200 mg tablet 200 mg PO TID PRN PRN (Reason: Bladder Spasms) 7 Days Qty: 30 0RF oxycodone-acetaminophen [oxycodone-acetaminophen] 5-325 mg tablet 1 - 2 tab PO Q8H PRN PRN (Reason: Pain) 7 Days Qty: 20 0RF sulfamethoxazole-trimethoprim [sulfamethoxazole-trimethoprim] 800-160 mg tablet 1 tab PO BID 3 Days Qty: 6 0RF Continued alprazolam 0.5 MG tablet 0.5 mg PO DAILY PRN (Reason: Insomnia) sertraline [Zoloft] 25 MG tablet 12.5 mg PO DAILY thyroid (pork) [[place] Thyroid] 30 MG tablet 30 mg PO DAILY melatonin 1.5 mg Tablet 2 mg PO QHS hydrocortisone 5 mg tablet 5 mg PO DAILY Label Comments: TAKE 3 TABLETS BY MOUTH EVERY MORNING AND 2 TABLETS BY MOUTH EVERY AFTERNOON Referrals / Follow Up: Funmilayo Mckenna NP, RESEARCH PHARMACIST-C [Primary Care Provider] - Disposition Disposition (needs filled in before D/C Order can be placed): Home, Self Care
--- NOTE | 2022-04-30 14:48 | OP.PCM_ITS ---
Report of Operation Date of Procedure: 04/30/22 Pre-Operative Diagnosis: Bilateral renal stones, right hydroureteronephrosis Post-Operative Diagnosis: Same Surgery/Procedure Performed:: Cystoscopy, right retrograde pyelogram, right ureteral stent insertion, right renal extracorporal shockwave lithotripsy Surgeon: Divina Barclay Type of Anesthesia: General Description of Procedure: The patient is a 51-year-old female with a longstanding history of stones who presented to the office after having a left pyelonephritis and identified as having significant bilateral renal stones along with right hydronephrosis. She now presents for further evaluation. The patient was taken to the operating room and placed on the operating room table. Anesthesia monitored the head, neck, airway, IV access and vital signs throughout the case. Once anesthesia was appropriately administered, she was placed into dorsolithotomy position was prepped and draped in usual sterile fashion. The cystoscope was inserted through the urethra under direct visualization. The bladder mucosa revealed diffuse cystitis cystica with no evidence of mass or foreign body or other abnormality. An 8 [place] cone-tip catheter was then used to gently cannulate the right ureteral orifice and a retrograde pyelogram revealed no filling defects with a stable ureteral size from the orifice all the way up to the ureteropelvic junction where there is a J hooking into a large pelvis with calyces that have maintained sharp definition. At this time a 0.035 Glidewire was placed through the orifice into the renal pelvis. A 6 [place] 24 cm JJ stent was placed over the wire with good positioning in the renal pelvis as well as the urinary bladder. The bladder was emptied. She was repositioned on the table and the lithotripter was used to place 3000 shocks to the uppermost portion of the stones which appeared to be well fragmented at the conclusion of the case. The patient was then awakened and taken to the recovery room in good condition. There were no complications during this procedure. Grafts/Implants Used: 6 x 24 JJ stent Complications None Admit VTE Documentation VTE Present on Admission: Yes VTE Mechan Device Prophylaxis: SCD's VTE Pharm Prophylaxis ordered?: No Reason prophylaxis not ordered:: Treatment Not Indicated
== END 2022-04-30 18:36 | disposition home or self-care (01) ==
LOC: SDC 13:01 → AC 13:04
PROVIDERS: Anesthesiology; PCP Nurse Practitioner Family; Referring Provider Urology; Visit Provider Urology
PROC: (CPT 50590; principal; 2022-04-30 14:40)
DX: N13.2 Hydronephrosis with renal and ureteral calculous obstruction (principal); Z87.442 Personal history of urinary calculi; E03.9 Hypothyroidism, unspecified; N39.0 Urinary tract infection, site not specified; R35.1 Nocturia; F41.9 Anxiety disorder, unspecified
CPT/HCPCS: 50590; 52332; 00873; 81025; J7120; C2617; J2405

== ENCOUNTER → 2022-05-06 | Outpatient (CLI) | payer BC, SELFPAY ==
[2022-05-06 15:12] LABS: Hematocrit 40.9 % (37-47); Hemoglobin 13.9 g/dL (12.0-15.0); Mean Corpuscular Hgb 31.6 pg (27.0-32.0); Mean Platelet Vol. 9.3 fl (6.2-12.0); Platelet Count 257 K/mm3 (150-450); RBC Distribution Width CV 12.5 % (11.6-14.6); RBC Distribution Width SD 42.9 fl (35.1-43.9); White Blood Count 6.2 K/mm3 (4.4-11.0)
[2022-05-06 15:38] LABS: Anion Gap 7 (5-15); BUN 17 mg/dL (7-18); BUN/Creat Ratio 13.5 RATIO (10-20); Chloride 105 mmol/L (98-107); Creatinine, Serum 1.26 mg/dL (0.55-1.02); EST Glomerular Filtration Rate 48 mL/min (>60); Est Glom Filt Rate - Afr Amer 58 mL/min (>60); Glucose 114 mg/dL (74-106); Potassium 3.9 mmol/L (3.5-5.1); Sodium Level 139 mmol/L (136-145)
== END | disposition home or self-care (01) ==
LOC: MTLAB 12:47
PROVIDERS: PCP Nurse Practitioner Family; Referring Provider Urology; Visit Provider Urology
DX: N20.0 Calculus of kidney (principal); N11.0 Nonobstructive reflux-associated chronic pyelonephritis; R42 Dizziness and giddiness
CPT/HCPCS: 36415; 80048; 85027; 87086; 87088

== ENCOUNTER → 2022-05-11 | Outpatient (CLI) | payer BC, SELFPAY ==
--- NOTE | 2022-05-11 11:33 | RAD_ITS ---
EXAM: XR ABDOMEN, 1 VIEW CLINICAL INDICATION: STONES TECHNIQUE: Frontal supine view of the abdomen/pelvis. This report was created using [employer] report generation technology. COMPARISON: April 02, 2022. FINDINGS: LOWER THORAX: No acute pathology. GASTROINTESTINAL TRACT: Moderate stool in the right colon, mild gas and stool in the distal colon. Non-obstructive. No bowel or stomach distention. ORGANS: See below. BONES/JOINTS: There are amorphous calcifications presumably in the medullary pyramids of the kidneys, moderate, similar to prior exam. Presumed medullary nephrocalcinosis. Moderate levoscoliosis centered at L3-4. SOFT TISSUES: No acute pathology. TUBES, LINES AND DEVICES: Present is a right ureteral stent, proximal end at the level of L2-3, distal and to the right of midline in the lower pelvis presumably in the bladder. RAD/Abdomen Single View IMPRESSION: 1. Moderate stool in the right colon. 2. Medullary nephrocalcinosis. Right ureteral stent. No convincing ureter stone is seen. Multiple phleboliths in the pelvis appear similar to prior exam. Electronically Signed: Kelly Banks MD at 4:37 EST ,
[2022-05-11 15:24] LABS: Anion Gap 7 (5-15); BUN 18 mg/dL (7-18); BUN/Creat Ratio 17.5 RATIO (10-20); Calcium,Total 9.1 mg/dL (8.5-10.1); Chloride 104 mmol/L (98-107); Creatinine, Serum 1.03 mg/dL (0.55-1.02); EST Glomerular Filtration Rate 60 mL/min (>60); Est Glom Filt Rate - Afr Amer 73 mL/min (>60); Glucose 103 mg/dL (74-106); Potassium 3.6 mmol/L (3.5-5.1); Sodium Level 140 mmol/L (136-145)
== END | disposition home or self-care (01) ==
LOC: MTRAD 11:32
PROVIDERS: PCP Nurse Practitioner Family; Referring Provider Urology; Visit Provider Urology
DX: N20.0 Calculus of kidney (principal)
CPT/HCPCS: 36415; 74018; 80048

== ENCOUNTER → 2022-05-19 | Outpatient (CLI) | payer BC, SELFPAY ==
--- NOTE | 2022-05-19 10:30 | RAD_ITS ---
STUDY: X-RAY - ABDOMEN/PELVIS REASON FOR EXAM: Female, 51 years old. Renal stones. Follow-up. TECHNIQUE: Single AP view of the abdomen / pelvis on 3 images. COMPARISON: May 11, 2022. FINDINGS: Normal visualized lung bases. There is an unremarkable bowel gas pattern. There is no demonstrated free abdominal air. Stable right ureteral stent. Multiple diffuse calcifications in both kidneys, unchanged. Findings compatible with medullary nephrocalcinosis. Normal soft tissue structures. Normal visualized osseous structures. RAD/Abdomen Single View IMPRESSION: Stable right ureteral stent with findings compatible with medullary nephrocalcinosis. No acute finding. Electronically Signed: Eugene Loco, at 14:06 EST ,
== END | disposition home or self-care (01) ==
PROVIDERS: PCP Nurse Practitioner Family; Referring Provider Urology; Visit Provider Urology
DX: N20.0 Calculus of kidney (principal)
CPT/HCPCS: 74018

== ENCOUNTER → 2022-06-03 | Outpatient (CLI) | payer BC, SELFPAY ==
--- NOTE | 2022-06-03 10:27 | RAD_ITS ---
STUDY: X-RAY - ABDOMEN/PELVIS REASON FOR EXAM: Female, 51 years old. Ureteral stones. TECHNIQUE: Single AP view of the abdomen / pelvis. COMPARISON: May 19, 2022. FINDINGS: Normal visualized lung bases. There is an unremarkable bowel gas pattern. There is no demonstrated free abdominal air. Stable right ureteral stent with findings of medullary nephrocalcinosis. Normal soft tissue structures. Stable rotatory levoscoliosis of the lumbar spine. RAD/Abdomen Single View IMPRESSION: Stable abdomen with no acute superimposed finding. Electronically Signed: Eugene Loco, at 10:47 EST ,
== END | disposition home or self-care (01) ==
LOC: MTRAD 10:26
PROVIDERS: PCP Nurse Practitioner Family; Referring Provider Urology; Visit Provider Urology
DX: N20.0 Calculus of kidney (principal)
CPT/HCPCS: 74018

== ENCOUNTER 2022-06-25 12:31 | Day surgery (SDC) | payer BC, SELFPAY ==
[2022-06-25] VITALS (8 sets, daily range): BP systolic 116–146; BP diastolic 65–98; PULSE 65–86; RESP 16–18; TEMP 36.2–37.3; O2SAT 67–98; BMI 31.3
[2022-06-25] MEDS: Lactated Ringers 1,000 ML 15 ML IV ×2 (13:05→15:43)
[2022-06-25 13:12] LABS: Internal QC Validated? YES +Cl - CLEAR BKGD; Pregnancy, Urine Negative Negative
[2022-06-25] MEDS: Clindamycin 900 MG/50 ML BAG 75 MG IV (13:55)
--- NOTE | 2022-06-25 14:33 | EX.PCM.DISCH ---
Discharge Instructions Diet Discharge Diet: No restrictions Activity Discharge Activity: Return to Normal Activity Dressing / Incision Call your doctor if you observe: Fever of 101 or Higher, Inability to urinate and Inability to have a bowel movement Follow Up Care Please Follow Up With: Divina Barclay MD When: 2-3 weeks in the office with KUB, call for appt Test Results: Test results from this visit will be discussed in further detail at your follow-up appointment, if applicable. Discharge Plan Admission Attending Provider: Divina Barclay Primary Care Provider: Funmilayo Mckenna NP Discharge Orders/Prescriptions Prescriptions: New phenazopyridine [Pyridium] 200 mg tablet 200 mg PO TID PRN PRN (Reason: Bladder Spasms) 7 Days Qty: 30 0RF oxycodone-acetaminophen [Percocet] 5-325 mg tablet 1 tab PO Q8H PRN (Reason: pain) 6 Days Qty: 18 0RF sulfamethoxazole-trimethoprim [sulfamethoxazole-trimethoprim] 800-160 mg tablet 1 tab PO BID 3 Days Qty: 6 0RF Continued alprazolam 0.5 MG tablet 0.5 mg PO DAILY PRN (Reason: Insomnia) sertraline [Zoloft] 25 MG tablet 12.5 mg PO DAILY thyroid (pork) [[place] Thyroid] 30 MG tablet 30 mg PO DAILY melatonin 1.5 mg Tablet 2 mg PO QHS hydrocortisone 5 mg tablet 5 mg PO DAILY Label Comments: TAKE 3 TABLETS BY MOUTH EVERY MORNING AND 2 TABLETS BY MOUTH EVERY AFTERNOON ondansetron HCl 8 mg tablet 8 mg PO Q8H PRN PRN (Reason: Nausea) 7 Days Qty: 20 0RF phenazopyridine [Pyridium] 200 mg tablet 200 mg PO TID PRN PRN (Reason: Bladder Spasms) 7 Days Qty: 30 0RF Referrals / Follow Up: Funmilayo Mckenna NP, [employer] [Primary Care Provider] - Disposition Disposition (needs filled in before D/C Order can be placed): Home, Self Care
--- NOTE | 2022-06-25 14:36 | PCM.OPRPT ---
Report of Operation Date of Procedure: 06/25/22 Pre-Operative Diagnosis: bilateral kidney stones Post-Operative Diagnosis: same Surgery/Procedure Performed:: cystoscopy, right ureteroscopy, attempted basket stone extraction, right ureteral stent removal, left ureteral stent insertion, left renal extracorporeal shockwave lithotripsy Surgeon: Divina Barclay Type of Anesthesia: General Specimen's removed: none Grafts/Implants Used: 6x24 JJ stent Complications The patient is a 51-year-old female with bilateral renal stones secondary to nephrocalcinosis. She presents for ureteroscopy possible stone removal on the right side with stent removal, left ureteral stent insertion and renal extracorporal shockwave lithotripsy. Informed consent was obtained. Patient was taken to the operating room and placed on the operating room table. Anesthesia monitored the head, neck, airway, IV access and vital signs throughout the case. Once anesthesia was appropriately administered the patient was placed into dorsolithotomy fashion. The cystoscope was inserted through the urethra under direct visualization into the urinary bladder the indwelling right ureteral stent was observed, removed and replaced with 2 separate 0.035 Glidewire's. The flexible ureteroscope advanced easily over one of the wires and the other was left as a safety wire. Access was achieved to the renal pelvis revealing very small stone fragments and a stone basket extraction was attempted but unsuccessful due to the size of the stones. The entire length of the ureter was visualized directly with no evidence of obstruction, stone or abnormality. At this time both wires and the ureteroscope were removed. On the left side, a wire was inserted to the renal pelvis and a 6 x 24 JJ stent was placed over the wire with good positioning in the renal pelvis as well as the urinary bladder. At this time 3000 shocks were applied to the left kidney. The patient tolerated the procedure well without complication. She was awakened and taken to the recovery room in good condition. Admit VTE Documentation VTE Present on Admission: Yes VTE Mechan Device Prophylaxis: SCD's VTE Pharm Prophylaxis ordered?: No Reason prophylaxis not ordered:: Treatment Not Indicated
[2022-06-25] MEDS: Ketorolac 30 MG/ML Syringe IV (16:37)
[2022-06-25] MEDS: Phenazopyridine 95 MG Tablet 190 MG PO (17:00)
== END 2022-06-25 17:51 | disposition home or self-care (01) ==
LOC: SDC 12:36 → AC 12:38
PROVIDERS: Anesthesiology; PCP Nurse Practitioner Family; Referring Provider Urology; Visit Provider Urology
PROC: (CPT 50590; principal; 2022-06-25 13:50)
PROC: (CPT 50590; 2022-06-25 13:50)
DX: N20.0 Calculus of kidney (principal); F41.9 Anxiety disorder, unspecified; R31.0 Gross hematuria; R30.0 Dysuria; Z79.899 Other long term (current) drug therapy
CPT/HCPCS: 50590; 52332; 00873; 81025; J7120; C2617; J2405

== ENCOUNTER → 2022-07-15 | Outpatient (CLI) | payer BC, SELFPAY ==
--- NOTE | 2022-07-15 10:05 | RAD_ITS ---
STUDY: X-RAY - ABDOMEN/PELVIS REASON FOR EXAM: Female, 52 years old. KIDNEY STONES TECHNIQUE: Single AP view of the abdomen / pelvis. COMPARISON: Comparison is made with prior study 06/03/2022. FINDINGS: Normal visualized lung bases. There is a moderate amount of colonic fecal material. A left-sided double-J stent catheter is seen with the proximal tip in the left renal pelvis and the distal tip in the left side of the bladder. Multiple bilateral intrarenal calculi. There are calcified phleboliths in the pelvis. Levoscoliosis. RAD/Abdomen Single View IMPRESSION: Left-sided double-J stent catheter in situ. Bilateral intrarenal calculi. Electronically Signed: Kenny Chen MD at 12:28 EST ,
== END | disposition home or self-care (01) ==
LOC: MTRAD 10:04
PROVIDERS: PCP Nurse Practitioner Family; Referring Provider Urology; Visit Provider Urology
DX: N20.0 Calculus of kidney (principal)
CPT/HCPCS: 74018

== ENCOUNTER → 2023-04-07 | Outpatient (CLI) | payer BC, SELFPAY | END | disposition home or self-care (01) | LOC: LAB 10:14 | PROVIDERS: PCP Nurse Practitioner Family; Referring Provider Ophthalmology; Visit Provider Ophthalmology | DX: Z79.899 Other long term (current) drug therapy (principal) | CPT/HCPCS: 36415 ==

== ENCOUNTER → 2023-10-12 | Outpatient (CLI) | payer SELFPAY ==
[2023-10-12 12:26] LABS: SERUM TEARS COLLECTION SPECIMEN PROCESSED
== END | disposition home or self-care (01) ==
PROVIDERS: PCP Nurse Practitioner Family; Referring Provider Ophthalmology; Visit Provider Ophthalmology
DX: H04.123 Dry eye syndrome of bilateral lacrimal glands (principal)